=== PATIENT | male | born 2000 | race Two or more races ===

== ENCOUNTER 2018-03-31 18:27 | Emergency (ER) | payer OTHER ==
[2018-03-31] MEDS ORDERED: OXYCODONE-ACETAMINOPHEN 5-325 MG TABLET PO ONE (21:10)
[2018-03-31] MEDS ORDERED: PROMETHAZINE HCL 25 MG TABLET PO ONE (21:10)
[2018-03-31] MEDS ORDERED: DIPH/PERTUSS(ACELL)/TETANUS VAC/PF 0.5 ML SYR (>=10YO) IM ONE (22:04)
[2018-03-31] MEDS ORDERED: CEPHALEXIN 500 MG CAPSULE PO ONE (22:39)
--- NOTE | 2018-03-31 22:42 | ER Document Report ---
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 Patient reports that his tetanus is not up to date. TRAVEL OUTSIDE OF THE [place] IN LAST 30 DAYS: No - Related Data Allergies/Adverse Reactions: No Known Allergies Allergy (Unverified 03/31/18 20:11) Past Medical History - General Information source: Patient, Relative - Social History Smoking Status: Never Smoker Smoking Education Provided: Yes Frequency of alcohol use: None Drug Abuse: None Lives with: Family Family History: Reviewed & Not Pertinent Patient has suicidal ideation: No Patient has homicidal ideation: No - Medical History Medical History: Negative Renal/ Medical History: Denies: Hx Peritoneal Dialysis Surgical Hx: Negative - Immunizations Hx Diphtheria, Pertussis, Tetanus Vaccination: No Review of Systems - Review of Systems Constitutional: No symptoms reported EENT: No symptoms reported Cardiovascular: No symptoms reported Respiratory: No symptoms reported Gastrointestinal: No symptoms reported Genitourinary: No symptoms reported Male Genitourinary: No symptoms reported Musculoskeletal: No symptoms reported Skin: See HPI Hematologic/Lymphatic: No symptoms reported Neurological/Psychological: No symptoms reported Physical Exam - Vital signs Vitals: Temp Pulse Resp BP Pulse Ox 99.1 F 62 16 110/65 99 03/31/18 18:45 03/31/18 18:45 03/31/18 18:45 03/31/18 18:45 03/31/18 18:45 - Notes Notes: PHYSICAL EXAMINATION: GENERAL: Well-appearing, well-nourished and in no acute distress. HEAD: Atraumatic, normocephalic. EYES: Pupils equal round extraocular movements intact, conjunctiva are normal. ENT: Nares patent NECK: Normal range of motion LUNGS: No respiratory distress Musculoskeletal: Normal range of motion NEUROLOGICAL: Normal speech, normal gait. PSYCH: Normal mood, normal affect. SKIN: Warm, Dry, normal turgor, no rashes or lesions noted. Avulsion noted to left hand along base of fifth digit medially. Active bleeding noted. Course - Re-evaluation Re-evalutation: Area of avulsion is approximately 5 cm 1 cm. Attempted to use silver nitrate for bleeding control without success. Bleeding was ultimately stopped using Surgicel. Avulsion would not benefit from any laceration as the skin is completely gone. Patient will be sent home with the surgicel in place. Patient 's family member was instructed to remove the dressing in 24 hours and apply a Xeroform bandage which I have provided to her. Family member verbalizes understanding of wound care. Patient will be given Tdap and sent home on antibiotic prophylaxis. - Vital Signs Vital signs: Temp Pulse Resp BP Pulse Ox 99.0 F 61 16 104/55 L 98 03/31/18 22:50 03/31/18 22:50 03/31/18 22:50 03/31/18 22:50 03/31/18 22:50 Discharge - Discharge Clinical Impression: Avulsion of skin Condition: Stable Disposition: HOME, SELF-CARE Additional Instructions: Avulsion Injury You have an avulsion injury -- a loss of skin which can't be helped by suturing. When large, these injuries can require skin grafting. Smaller defects or shallow avulsions usually heal well with dressings. Keep the dressing clean and dry. If the bandage becomes wet, remove it, blot the area dry, and apply a fresh dressing. Change the dressings every day. Complete healing may take anywhere from 10 days to two months. The healing time depends on the size and depth of the avulsion and on the amount of crushing of underlying tissues. Re-examination by the physician is often necessary. If any signs of infection occur (swelling, redness, increasing tenderness, red streaks, profuse purulent drainage from the avulsion, tender lumps in the armpit or groin above the avulsion, or fever), see your doctor immediately. Please take antibiotics as prescribed. Please leave the dressing in place for 24 hours and keep the wound dry. In 24 hours please apply the dressing that I gave to you and leave that in place for 3 days. After that please use Neosporin to the wound twice daily and keep covered. Return to the emergency department if the wound starts bleeding again, you develop a fever, you have any foul drainage from the area or any streaking. Prescriptions: Cephalexin Monohydrate [Keflex 500 mg Capsule] 500 mg PO Q6H 5 Days #20 capsule Referrals: [facility] [Provider Group] - Follow up as needed
[2018-03-31 22:53] VITALS: BP 104/55
== END 2018-03-31 22:56 | disposition home or self-care (01) ==
LOC: ER 18:27
DX: S61.412A Laceration without foreign body of left hand, initial encounter (principal); W45.8XXA Other foreign body or object entering through skin, initial encounter; Y99.0 Civilian activity done for income or pay; Z23 Encounter for immunization
CPT/HCPCS: 90471; 90715; 99283